=== PATIENT | female | born 1970 | race Caucasian/White ===

== ENCOUNTER 2016-08-07 19:57 | Emergency (ER) | payer SELFPAY ==
[~2016-08-07] VITALS: Ht 162.6 cm; Wt 77.0 kg
[~2016-08-07 19:57] MED LIST: DEXT1LOZ PO; IBUP-1277 PO; PSEU1CAP PO; [UNRECOGNIZED DRUG - OTHER] PO
[2016-08-07 20:00] VITALS: TEMP 36.9; Ht 162.6 cm; Wt 77.0 kg
[2016-08-07 20:36] VITALS: O2SAT 98
--- NOTE | 2016-08-07 20:36 | DIAGNOSTIC IMAGING REPORT ---
SINGLE VIEW CHEST CLINICAL HISTORY: Atypical chest pain. FINDINGS: An AP, portable, upright chest radiograph is compared to study dated 05/13/2014 and correlated with chest CT dated 10/22/2011. The cardiomediastinal silhouette is unremarkable. There is mild atherosclerotic calcification of the thoracic aorta. There is minimal elevation of the right hemidiaphragm. The lungs and pleural spaces are clear. No pneumothorax is seen. The bony thorax is grossly intact. IMPRESSION: No acute cardiopulmonary abnormality. Electronically signed by: Hugo Joshi M.D. 08/07/2016 8:35 PM Dictated Date/Time: 08/07/2016 8:34 PM
[2016-08-07] MEDS ORDERED: HYDR25TA4 PO (20:38)
[2016-08-07] MEDS ORDERED: LEVO88TA3 PO (20:38)
[2016-08-07 20:44] LABS: BASO % 0.3 %; BASO ABS # 0.02 K/uL (0-0.2); COMPLETE YES; EOS % 1.2 %; HEMATOCRIT 45.3 % (37-47); IG% 0.2 %; LYMPH % 37.8 %; LYMPH ABS # 2.26 K/uL (1.2-3.4); MEAN CELL VOLUME 100.9 fL (80-100); MEAN CORPUSCULAR HEMOGLOBIN 34.5 pg (25-34); MEAN CORPUSCULAR HGB CONC 34.2 g/dl (32-36); MEAN PLATELET VOLUME 9.2 fL (7.4-10.4); MONO % 6.7 %; NEUT % 53.8 %; PLATELET COUNT 197 K/uL (130-400); RED BLOOD COUNT 4.49 M/uL (4.2-5.4); WHITE BLOOD COUNT 5.98 K/uL (4.8-10.8)
[2016-08-07 20:59] LABS: INR 0.9 (0.9-1.1)
[2016-08-07 21:03] LABS: BUN/CREATININE RATIO 20.1 (10-20); CALCIUM 9.1 mg/dl (8.5-10.1); CREATININE 0.65 mg/dl (0.60-1.20); MAGNESIUM 1.9 mg/dl (1.8-2.4); POTASSIUM 3.1 mmol/L (3.5-5.1)
[2016-08-07 21:14] LABS: THYROID STIMULATING HORMONE 5.33 uIu/ml (0.300-4.500)
[2016-08-07] MEDS ORDERED: POTASSIUM CHLORIDE 10 MEQ TABCR PO STA (21:24)
[2016-08-07 21:40] VITALS: BP 150/113; PULSE 98; O2SAT 97
--- NOTE | 2016-08-07 21:52 | EMERGENCY ROOM VISIT NOTE ---
History Report prepared by Shaun: Brisa Maciel Under the Supervision of: Dr. Jeferson Rivera M.D. First contact with patient: 20:06 Chief Complaint: HYPERTENSION Stated Complaint: HIGH BLOOD PRESSURE, REFERRED BY MD History of Present Illness The patient is a 46 year old female who presents to the Emergency Room with complaints of constant hypertension for the past few days. The patient has a history of hypertension and has been taking hydrochlorothiazide for the past year. She states that over the past couple of days her blood pressure has been elevated. The lowest it has been was 134/99. Today she went to her PCP's office for her symptoms and her blood pressure was 189/93. She notes occasional palpitations. She was sent to the ED for further evaluation. The patient denies chest pain, abdominal pain, leg swelling, headache, and visual symptoms. Source of History: patient Onset: CLERICAL RECEPTIONIST Position: other (global) Symptom Intensity: 189/93 Quality: other (hypertension) Timing: constant Modifying Factors (Worsening): other (stress/nervousness) Associated Symptoms: No abdominal pain, No chest pain, No headache Review of Systems See HPI for pertinent positives & negatives. A total of 10 systems reviewed and were otherwise negative. Past Medical & Surgical Medical Problems: (1) ABOVE KNEE AMPUTATION STATUS (2) TUBAL LIGATION STATUS Family History Patient reports no known family medical history. Social History Smoking Status: Current Every Day Smoker Alcohol Use: occasionally Drug Use: none Marital Status: Housing Status: lives with family Occupation Status: employed Current/Historical Medications Scheduled Hydrochlorothiazide (Hctz), 25 MG PO DAILY Levothyroxine Sodium (Levothyroxine Sodium), 88 MCG PO DAILY Allergies Coded Allergies: No Known Allergies (Verified , 08/07/16) Physical Exam Vital Signs Date Time Temp Pulse Resp B/P Pulse Ox O2 Delivery O2 Flow Rate FiO2 08/07/16 20:36 98 Room Air 08/07/16 20:00 36.9 103 18 164/95 98 Room Air Physical Exam Constitutional: Vital signs reviewed. Eyes: Pupils are equal round reactive to light. Conjunctiva are noninjected. ENT: Pharynx is clear without erythema or exudate. Mucous membranes are moist. Neck supple without meningeal signs. Respiratory: Clear to auscultation bilaterally. Breath sounds are equal bilaterally. Cardiovascular: Regular rate and rhythm. No rubs or gallops. GI: Soft, nondistended and nontender. Bowel sounds are present. Musculoskeletal: No peripheral edema. No lower extremity tenderness. Integumentary: No cyanosis. Neurological: The patient is awake and alert. No focal deficits. Psychiatric: Slightly anxious. Medical Decision & Procedures ER Provider Diagnostic Interpretation: Radiology results as stated below per my review and the radiologist's interpretation: SINGLE VIEW CHEST CLINICAL HISTORY: Atypical chest pain. FINDINGS: An AP, portable, upright chest radiograph is compared to study dated 05/13/2014 and correlated with chest CT dated 10/22/2011. The cardiomediastinal silhouette is unremarkable. There is mild atherosclerotic calcification of the thoracic aorta. There is minimal elevation of the right hemidiaphragm. The lungs and pleural spaces are clear. No pneumothorax is seen. The bony thorax is grossly intact. IMPRESSION: No acute cardiopulmonary abnormality. Electronically signed by: Hugo Joshi M.D. 08/07/2016 8:35 PM Dictated Date/Time: 08/07/2016 8:34 PM Laboratory Results 08/07/16 20:35 Red Blood Count 4.49, Mean Corpuscular Volume 100.9, Mean Corpuscular Hemoglobin 34.5, Mean Corpuscular Hemoglobin Concent 34.2, Mean Platelet Volume 9.2, Neutrophils (%) (Auto) 53.8, Lymphocytes (%) (Auto) 37.8, Monocytes (%) ( Auto) 6.7, Eosinophils (%) (Auto) 1.2, Basophils (%) (Auto) 0.3, Neutrophils # ( Auto) 3.22, Lymphocytes # (Auto) 2.26, Monocytes # (Auto) 0.40, Eosinophils # ( Auto) 0.07, Basophils # (Auto) 0.02 08/07/16 20:35 Test 08/07/16 20:35 08/07/16 20:39 White Blood Count 5.98 K/uL (4.8-10.8) Red Blood Count 4.49 M/uL (4.2-5.4) Hemoglobin 15.5 g/dL (12.0-16.0) Hematocrit 45.3 % (37-47) Mean Corpuscular Volume 100.9 fL (80-100) Mean Corpuscular Hemoglobin 34.5 pg (25-34) Mean Corpuscular Hemoglobin Concent 34.2 g/dl (32-36) Platelet Count 197 K/uL (130-400) Mean Platelet Volume 9.2 fL (7.4-10.4) Neutrophils (%) (Auto) 53.8 % Lymphocytes (%) (Auto) 37.8 % Monocytes (%) (Auto) 6.7 % Eosinophils (%) (Auto) 1.2 % Basophils (%) (Auto) 0.3 % Neutrophils # (Auto) 3.22 K/uL (1.4-6.5) Lymphocytes # (Auto) 2.26 K/uL (1.2-3.4) Monocytes # (Auto) 0.40 K/uL (0.11-0.59) Eosinophils # (Auto) 0.07 K/uL (0-0.5) Basophils # (Auto) 0.02 K/uL (0-0.2) RDW Standard Deviation 49.8 fL (36.4-46.3) RDW Coefficient of Variation 13.5 % (11.5-14.5) Immature Granulocyte % (Auto) 0.2 % Immature Granulocyte # (Auto) 0.01 K/uL (0.00-0.02) Prothrombin Time 10.0 SECONDS (9.0-12.0) Prothromb Time International Ratio 0.9 (0.9-1.1) Activated Partial Thromboplast Time 26.8 SECONDS (21.0-31.0) Partial Thromboplastin Ratio 1.0 Anion Gap 11.0 mmol/L (3-11) Est Creatinine Clear Calc Drug Dose 107.5 ml/min Estimated GFR () 122.5 Estimated GFR (Non- 105.7 BUN/Creatinine Ratio 20.1 (10-20) Calcium Level 9.1 mg/dl (8.5-10.1) Magnesium Level 1.9 mg/dl (1.8-2.4) Thyroid Stimulating Hormone (TSH) 5.330 uIu/ml (0.300-4.500) Free Thyroxine 1.01 ng/dl (0.80-1.60) Bedside Troponin I 0.000 ng/ml (0-0.045) Laboratory results as reviewed by me. ECG Indication: palpitations Rate (beats per minute): 92 Rhythm: normal sinus Findings: nonspecific-ST abn (Lateral), no acute ischemic change, no ectopy Comparison ECG Date: 02/08/2010 Change: no significant change ED Course 2005: The patient was evaluated in room B9. A complete history and physical exam was performed. 2120: I reassessed the patient at this time. She is feeling better and resting comfortably. I discussed the results and treatment plan with the patient. I answered all pertaining questions that she had. She expressed understanding and verbalized agreement. The patient will be discharged home. 2123: Potassium Chloride 40 meq PO Medical Decision This is a 46-year-old female presents with hypertension. I did perform a limited focused review of portions of the patient's old chart on the electronic medical record. The patient has had no recent pertinent visits to this hospital. I did evaluate the patient as noted above. The patient is presenting with increased blood pressures recently. She had an elevated blood pressure doctor' s office today and was sent here for further evaluation. The patient, however, is asymptomatic. She denies any headaches, visual complaints, problems with urination or chest discomfort. The patient was also concerned about her thyroid function. IV access was established. I did order and personally review the patient's 12-lead EKG and chest x-ray as described above. There are some nonspecific findings on her twelve-lead EKG which were present on her previous one. I did order and review the patient's blood work as noted in the electronic medical record. Troponin is negative. She does have hypokalemia likely from her hydrochlorothiazide. Free T3 is within normal limits. I did discuss the test results with the patient. I did recommend she follow closely with her doctor for long-term blood pressure control. She may need additional medications if her hydrochlorothiazide is not adequate. She was given return instructions. She was given oral potassium and discharged in good condition. Impression Primary Impression: Hypertension Additional Impression: Hypokalemia Scribe Attestation The scribe's documentation has been prepared under my direct and personally reviewed by me in its entirety. I confirm that the note above accurately reflects all work, treatment, procedures, and medical decision making performed by me. Departure Information Dispostion Home / Self-Care Referrals No Doctor, Assigned (PCP) Forms HOME CARE DOCUMENTATION FORM, IMPORTANT VISIT INFORMATION, WORK / SCHOOL INSTRUCTIONS Patient Instructions ED Diet High Potassium, Hypertension Dc, Hypokalemia Dc, My [facility] Additional Instructions You have been examined and treated today on an emergency basis only. This is not a substitute for, or an effort to provide, complete comprehensive medical care. It is impossible to recognize and treat all injuries or illnesses in a single emergency department visit. It is therefore important that you follow up closely with your physician. Call as soon as possible for an appointment. Return for worsening symptoms or if you develop chest pain, shortness of breath , headache, visual problems or any other concerning symptoms. Problem Qualifiers
== END 2016-08-07 21:52 | disposition home or self-care (01) ==
LOC: C.EDB 19:59
DX: I10 Essential (primary) hypertension (principal); E87.6 Hypokalemia; F17.200 Nicotine dependence, unspecified, uncomplicated; Z98.51 Tubal ligation status; Z89.619 Acquired absence of unspecified leg above knee

== ENCOUNTER 2017-09-18 13:15 | Emergency (ER) | payer SELFPAY ==
[~2017-09-18] VITALS: Ht 162.6 cm; Wt 78.3 kg
[~2017-09-18 13:15] MED LIST changes: -DEXT1LOZ PO; +HYDR25TA4 PO; -IBUP-1277 PO; +LEVO88TA3 PO; -PSEU1CAP PO; -[UNRECOGNIZED DRUG - OTHER] PO
[2017-09-18 13:21] VITALS: TEMP 36.7; Ht 162.6 cm; Wt 78.3 kg
[2017-09-18] MEDS ORDERED: DIAZEPAM INJ 5 MG/ML 2 ML CARP IV STA (13:40)
[2017-09-18 13:58] VITALS: O2SAT 95
[2017-09-18 14:12] LABS: BASO % 0.4 %; BASO ABS # 0.02 K/uL (0-0.2); EOS % 0.5 %; EOS ABS # 0.03 K/uL (0-0.5); HEMATOCRIT 46.3 % (37-47); HEMOGLOBIN 15.8 g/dL (12.0-16.0); IG# 0.01 K/uL (0.00-0.02); LYMPH ABS # 2.25 K/uL (1.2-3.4); MEAN CELL VOLUME 100.7 fL (80-100); MEAN CORPUSCULAR HEMOGLOBIN 34.3 pg (25-34); MEAN CORPUSCULAR HGB CONC 34.1 g/dl (32-36); MEAN PLATELET VOLUME 9.4 fL (7.4-10.4); MONO % 7.1 %; MONO ABS # 0.39 K/uL (0.11-0.59); NEUT % 50.8 %; NEUT ABS # 2.79 K/uL (1.4-6.5); PLATELET COUNT 284 K/uL (130-400); RED CELL DISTRIBUTION WIDTH CV 13.1 % (11.5-14.5); WHITE BLOOD COUNT 5.49 K/uL (4.8-10.8)
[2017-09-18 14:17] LABS: CALCIUM 9.1 mg/dl (8.5-10.1); CREATININE 0.67 mg/dl (0.60-1.20)
[2017-09-18] MEDS ORDERED: HYDR50TA3 PO (14:22)
[2017-09-18 14:27] LABS: CKMB 1.1 ng/ml (0.5-3.6)
--- NOTE | 2017-09-18 14:31 | DIAGNOSTIC IMAGING REPORT ---
CHEST 2 VIEWS ROUTINE CLINICAL HISTORY: palpitations cardiac arrhythmia COMPARISON STUDY: 08/07/2016 FINDINGS: The bones soft tissues and hemidiaphragms are normal. The cardiomediastinal silhouette is normal. The lungs are clear. The pulmonary vasculature is normal. IMPRESSION: Negative chest. The above report was generated using voice recognition software. It may contain grammatical, syntax or spelling errors. Electronically signed by: Cristian Lozano M.D. 09/18/2017 2:30 PM Dictated Date/Time: 09/18/2017 2:30 PM
[2017-09-18] MEDS ORDERED: POTASSIUM CHLORIDE 10 MEQ TABCR PO STA (14:35)
[2017-09-18] MEDS ORDERED: POTA10CA28 PO (14:48)
[2017-09-18] MEDS ORDERED: LORA-741 PO (14:48)
--- NOTE | 2017-09-18 14:50 | EMERGENCY ROOM VISIT NOTE ---
History First contact with patient: 13:26 Chief Complaint: CARDIAC ASSESSMENT Stated Complaint: HEART POUNDING,SHACKY History of Present Illness The patient is a 47 year old female who presents to the Emergency Room with complaints of heart palpitations, shakiness and dizziness. The patient states that she has been under a lot of stress with her daughter. She states her daughter left home 1 year ago and was living with a family member and then at some point without telling her mother she moved to [place] and is living with her boyfriend. She states that the boyfriend has been arrested many times. She is very concerned for her daughter and her safety. The patient states that she received a call from her daughter on Sunday and her daughter was crying so she immediately drove down to her daughter and stayed there and came home last night. Her daughter did not come home with her. She states she went to work this morning and then started with the heart palpitations and feeling shaky. She also states that when she gets E she also feels dizzy but has not passed out. The patient has never had these symptoms before. Patient denies excessive caffeine use. She does admit that she has a thyroid disorder for which she is on thyroid medication and is followed by Dr. [facility]. She also is on hydrochlorothiazide for hypertension. The patient states that she has been doing her daily activities but is very concerned and nervous about her daughter. She denies any suicidal homicidal ideations. She is eating okay but not sleeping well. Review of Systems 10 system review was performed and was negative unless stated otherwise history of present illness. Past Medical/Surgical History Medical Problems: (1) ABOVE KNEE AMPUTATION STATUS (2) TUBAL LIGATION STATUS Hypothyroidism, hypertension Family History Patient reports no known family medical history. Social History Smoking Status: Current Every Day Smoker Alcohol Use: occasionally Drug Use: none Marital Status: Housing Status: lives with family Occupation Status: employed Current/Historical Medications Scheduled Hydrochlorothiazide (Hctz), 50 MG PO DAILY Levothyroxine Sodium (Levothyroxine Sodium), 88 MCG PO DAILY Physical Exam Vital Signs Date Time Temp Pulse Resp B/P (MAP) Pulse Ox O2 Delivery O2 Flow Rate FiO2 09/18/17 14:11 94 09/18/17 14:02 106 18 139/89 95 Room Air 09/18/17 13:58 95 Room Air 09/18/17 13:58 95 Room Air 09/18/17 13:21 36.7 106 18 154/85 96 Room Air Physical Exam GENERAL: 47-year-old white female appears in no acute distress. MENTAL Status: Alert and oriented 3. The patient appears very anxious and is shaking. NECK: Supple, no lymphadenopathy noted. No carotid bruits noted. Thyroid without enlargement or nodularity. LUNGS: Clear auscultation without wheezes rales or rhonchi. CARDIAC: Tachycardia with a rate of 100 normal rhythm without murmur. Pulses is full and equal throughout. ABDOMEN: Positive bowel sounds all 4 quadrants. Soft, nontender to palpation without organomegaly or masses. Medical Decision & Procedures ER Provider Diagnostic Interpretation: CHEST 2 VIEWS ROUTINE CLINICAL HISTORY: palpitations cardiac arrhythmia COMPARISON STUDY: 08/07/2016 FINDINGS: The bones soft tissues and hemidiaphragms are normal. The cardiomediastinal silhouette is normal. The lungs are clear. The pulmonary vasculature is normal. IMPRESSION: Negative chest. The above report was generated using voice recognition software. It may contain grammatical, syntax or spelling errors. Electronically signed by: Cristian Lozano M.D. 09/18/2017 2:30 PM Laboratory Results 09/18/17 13:42 Red Blood Count 4.60, Mean Corpuscular Volume 100.7, Mean Corpuscular Hemoglobin 34.3, Mean Corpuscular Hemoglobin Concent 34.1, Mean Platelet Volume 9.4, Neutrophils (%) (Auto) 50.8, Lymphocytes (%) (Auto) 41.0, Monocytes (%) ( Auto) 7.1, Eosinophils (%) (Auto) 0.5, Basophils (%) (Auto) 0.4, Neutrophils # ( Auto) 2.79, Lymphocytes # (Auto) 2.25, Monocytes # (Auto) 0.39, Eosinophils # ( Auto) 0.03, Basophils # (Auto) 0.02 09/18/17 13:42 Test 09/18/17 13:42 White Blood Count 5.49 K/uL (4.8-10.8) Red Blood Count 4.60 M/uL (4.2-5.4) Hemoglobin 15.8 g/dL (12.0-16.0) Hematocrit 46.3 % (37-47) Mean Corpuscular Volume 100.7 fL (80-100) Mean Corpuscular Hemoglobin 34.3 pg (25-34) Mean Corpuscular Hemoglobin Concent 34.1 g/dl (32-36) Platelet Count 284 K/uL (130-400) Mean Platelet Volume 9.4 fL (7.4-10.4) Neutrophils (%) (Auto) 50.8 % Lymphocytes (%) (Auto) 41.0 % Monocytes (%) (Auto) 7.1 % Eosinophils (%) (Auto) 0.5 % Basophils (%) (Auto) 0.4 % Neutrophils # (Auto) 2.79 K/uL (1.4-6.5) Lymphocytes # (Auto) 2.25 K/uL (1.2-3.4) Monocytes # (Auto) 0.39 K/uL (0.11-0.59) Eosinophils # (Auto) 0.03 K/uL (0-0.5) Basophils # (Auto) 0.02 K/uL (0-0.2) RDW Standard Deviation 48.0 fL (36.4-46.3) RDW Coefficient of Variation 13.1 % (11.5-14.5) Immature Granulocyte % (Auto) 0.2 % Immature Granulocyte # (Auto) 0.01 K/uL (0.00-0.02) Anion Gap 8.0 mmol/L (3-11) Est Creatinine Clear Calc Drug Dose 104.0 ml/min Estimated GFR () 120.5 Estimated GFR (Non- 103.9 BUN/Creatinine Ratio 13.4 (10-20) Calcium Level 9.1 mg/dl (8.5-10.1) Total Creatine Kinase 119 U/L (26-192) Creatine Kinase MB 1.1 ng/ml (0.5-3.6) Creatine Kinase MB Ratio 0.9 (0-3.0) Thyroid Stimulating Hormone (TSH) 1.260 uIu/ml (0.300-4.500) Medications Administered Medications (Trade) Dose Ordered Sig/Beatriz Route Start Time Stop Time Status Last Admin Dose Admin Diazepam (Valium Inj) 5 mg NOW STAT IV 09/18/17 13:40 09/18/17 13:43 DC 09/18/17 14:04 5 MG ECG Per My Interpretation Indication: palpitations Rhythm: sinus tachycardia Findings: PVC ED Course The patient was evaluated. The placement was placed on a monitor. Patient's EMR medication list were reviewed. IV access was obtained. CBC and differential, renal profile, TSH was ordered. EKG was ordered interpreted by myself as above without any acute findings. Chest x-ray was ordered interpreted by the radiologist and myself as above without any acute findings. The patient was given Valium 5 mg IV for her anxiety. Labs are reviewed. TSH was within normal range. CBC was normal. The patient's potassium was low at 3.0. She was given K Dur 20 mEq p.o. The patient was reevaluated and was feeling much better after receiving the Valium. The patient was discharged home in stable condition after being informed of all her lab and diagnostic findings. Medical Decision Differential diagnosis include anxiety, cardiac arrhythmia, A. fib, V. tach Impression Primary Impression: Anxiety Additional Impression: Hypokalemia Departure Information Dispostion Home / Self-Care Condition GOOD Prescriptions Lorazepam (ATIVAN) 0.5 Mg Tab 1 TAB PO Q6H for Anxiety/Agitation, #20 TAB Prov: Donna Lozano PA-C 09/18/17 Potassium Chloride (Micro-K Ext Rel) 10 Meq Capcr 10 MEQ PO DAILY for 14 Days, #14 CAP Prov: Donna Lozano PA-C 09/18/17 Referrals No Doctor, Assigned (PCP) Forms IMPORTANT VISIT INFORMATION Patient Instructions Anxiety Disorder, My [facility] Additional Instructions Take Ativan as needed for anxiety. I would recommend that you follow-up with Dr. Ray to get placed on anti-anxiety medicine long-term such as an SSRI.. Your potassium was low today. Take the potassium supplement as directed for 2 weeks and would recommend eating a banana daily. Recheck lab work in 2 weeks for potassium level. If symptoms persist or worsen, return to ER. Problem Qualifiers
[2017-09-18 15:31] VITALS: BP 134/96; PULSE 83; O2SAT 93
== END 2017-09-18 15:20 | disposition home or self-care (01) ==
LOC: C.EDB 13:17 → C.EDC 15:20
DX: F41.9 Anxiety disorder, unspecified (principal); E87.6 Hypokalemia; E03.9 Hypothyroidism, unspecified; I10 Essential (primary) hypertension; F17.200 Nicotine dependence, unspecified, uncomplicated